=== PATIENT | male | born 1960 | race Caucasian/White ===

== ENCOUNTER 2023-01-17 12:14 | Outpatient (REF) | payer MEDICAID, SELFPAY ==
--- NOTE | ~2023-01-17 | XR_ITS ---
EXAMINATION: XR SHOULDER, RIGHT CLINICAL INFORMATION: Right shoulder pain. COMPARISON: None available. TECHNIQUE: AP external rotation, Grashey, scapular Y, and axillary views of the right shoulder. FINDINGS: No acute fracture or dislocation. Small acromioclavicular and glenohumeral marginal osteophytes. Degenerative cystic change at the greater tuberosity. No concerning lytic or blastic osseous lesion. No abnormal soft tissue calcification. XR/XR shoulder RT min 2V IMPRESSION: Mild acromioclavicular and glenohumeral osteoarthritis.
== END 2023-01-17 12:15 | disposition home or self-care (01) ==
LOC: HO.HHCX 12:14
PROVIDERS: Visit Provider Student in an Organized Health Care Education/Training Program
DX: M25.511 Pain in right shoulder (principal)
CPT/HCPCS: 73030

== ENCOUNTER 2023-02-01 12:37 | Outpatient (REF) | payer MEDICAID, SELFPAY ==
[2023-02-01 14:48] LABS: MANUAL DIFF FLAG NO
[2023-02-01 15:05] LABS: Basophils Absolute Auto 0.1 X10*3/uL (0.0-0.2); Basophils Percent Auto 0.6 % (0-2); Eosinophils Absolute Auto 0.2 X10*3/uL (0.0-0.4); Eosinophils Percent Auto 2.1 % (0-4); Hemoglobin 15.4 g/dl (14.0-18.0); Imm Gran Abs Auto 0.12 X10*3/uL (0.00-0.03); Imm Gran Pct Auto 1.2 % (0.0-0.4); Lymphocytes Absolute Auto 2.8 X10*3/uL (1.2-4.9); Lymphocytes Percent Auto 27.6 % (20-40); Mean Corpuscular HGB Conc 35.8 g/dl (31.0-36.0); Mean Corpuscular Hemoglobin 32.5 pg (27.0-33.0); Mean Corpuscular Volume 90.7 fL (80.0-98.0); Mean Platelet Volume 8.9 fL (9.4-12.4); Monocytes Absolute Auto 0.5 X10*3/uL (0.1-1.2); Monocytes Percent Auto 4.7 % (2-11); Neutrophils Absolute Auto 6.4 x10*3/uL (2.0-8.3); Neutrophils Percent Auto 63.8 % (45-73); Platelet Count 290 X10*3/uL (160-400); Red Blood Count 4.74 X10*6/uL (4.60-5.80); Red Cell Distribution Width 12.9 % (11.0-16.0); White Blood Count 10.1 X10*3/uL (4.8-10.8)
[2023-02-01 15:32] LABS: Alanine Aminotransferase 19 U/L (0-40); Albumin Level 4.4 g/dL (3.5-5.0); Alkaline Phosphatase 56 U/L (39-117); Aspartate Amino Transferase 21 U/L (5-37); Bilirubin Direct 0.1 mg/dL (0.0-0.5); Bilirubin Total 0.4 mg/dL (0.0-1.0); Cholesterol 167 mg/dL (<200); HDL Cholesterol 44 mg/dL (>40); LDL Cholesterol Calculated 105 mg/dL (<100); Total Protein 7.5 g/dL (6.5-8.0); Triglycerides 90 mg/dL (<150)
[2023-02-01 15:37] LABS: TSH reflex Free T4 1.13 uIU/mL (0.32-4.0)
[2023-02-02 04:49] LABS: HBS Num1 0.22 mIU/mL (0-7.99); HBc Num1 0.09 S/CO (0.00-0.79); HBsAGNum1 0.37 S/CO (0.00-0.99); Hepatitis A Antibody IgM 0.19 Index (0-0.79); Hepatitis B Core Antibody Nonreactive (Nonreactive); Hepatitis B Surface Antigen Negative (Negative); ~Hepatitis A Antibody IgM Nonreactive (Nonreactive); ~Hepatitis B Surface Antibody NONREACTIVE (Nonreactive); ~Hepatitis C Antibody Nonreactive (Nonreactive)
== END 2023-02-01 12:38 | disposition home or self-care (01) ==
LOC: HO.CHCLDS 12:37
PROVIDERS: Visit Provider Internal Medicine
DX: R03.0 Elevated blood-pressure reading, without diagnosis of hypertension (principal)
CPT/HCPCS: 36415; 80061; 80076; 84443; 85025; 86704; 86706; 86709; 86803; 87340

== ENCOUNTER 2024-04-19 15:00 | Outpatient (REF) | payer MEDICAID, SELFPAY ==
[2024-04-19 17:55] LABS: Total Protein 7.6 g/dL (6.5-8.0)
[2024-04-19 18:01] LABS: Alanine Aminotransferase 26 U/L (0-40); Albumin Level 4.3 g/dL (3.5-5.0); Alkaline Phosphatase 64 U/L (39-117); Aspartate Amino Transferase 32 U/L (5-37); Bilirubin Direct 0.1 mg/dL (0.0-0.5); Bilirubin Total 0.4 mg/dL (0.0-1.0)
== END 2024-04-19 15:01 | disposition home or self-care (01) ==
LOC: HO.CHCLDS 15:00
PROVIDERS: Visit Provider Registered Nurse
DX: B35.1 Tinea unguium (principal)
CPT/HCPCS: 36415; 80076